=== PATIENT | male | born 1945 | race Caucasian/White ===

== ENCOUNTER → 2016-11-26 | Outpatient (CLI) | payer MEDICARE, OTHER ==
[~2016-11-26] MED LIST: ASPIRIN EC81 MG PO; FLOMAX0.4 MG PO; NORCO 5-325 MG1 TAB PO; PROSCAR5 MG PO
== END | disposition disaster alternative care site (69) ==
LOC: GRAD 12:30
DX: R79.1 Abnormal coagulation profile (principal); Z86.711 Personal history of pulmonary embolism
CPT/HCPCS: Q9967